=== PATIENT | male | born 1980 | race Caucasian/White ===

== ENCOUNTER 2018-05-14 20:01 | Emergency (ER) | payer OTHER ==
--- NOTE | 2018-05-14 21:39 | ED Physician Documentation ---
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 he is right hand dominant Review of Systems Constitutional: denies: Fever, Chills, Sweats Skin: reports: Bite / sting Musculoskeletal: reports: Extremity pain, Extremity swelling PD PAST MEDICAL HISTORY - Past Medical History Past Medical History: No - Past Surgical History Past Surgical History: Yes General: Cholecystectomy, Appendectomy - Present Medications Home Medications: Ambulatory Orders Medication Instructions Recorded Confirmed Sulfamethox/Trimeth 800/160 1 each PO BID #14 tablet 05/14/18 [Bactrim Ds 800/160] predniSONE [Prednisone] 40 mg PO DAILY #6 tablet 05/14/18 - Allergies Allergies/Adverse Reactions: Allergies Allergy/AdvReac Type Severity Reaction Status Date / Time No Known Drug Allergies Allergy Verified 05/14/18 20:06 - Social History Does the pt smoke?: Yes Smoking Status: Current every day smoker Does the pt drink ETOH?: Yes Does the pt have substance abuse?: No - Immunizations Immunizations are current?: Yes PD ED PE NORMAL - Vitals Vital signs reviewed: Yes - General General: Alert and oriented X 3, No acute distress, Well developed/nourished - Neuro Neuro: No motor deficit, No sensory deficit PD ED PE EXPANDED - Extremities DENISA UE/Hands Visual: 1 - swelling (diffuse, generalized swelling of right hand and all five digits) 2 - rash (mild confluent erythema), swelling, deformity (single puncture wound without visible FB; small amount of serous, translucent discharge without purulence or fluctuance.), tenderness Results - Vitals Vitals: Oxygen O2 Source Room air PD MEDICAL DECISION MAKING - ED course Complexity details: considered differential, d/w patient ED course: 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 tonights exam is most suggestive of large, local reaction, but given the extent of swelling, the small but confluent erythema adjacent to site of sting, and worsening of symptoms two days after the sting, will cover with antibiotic for possible infection - Sepsis Event Vital Signs: Oxygen O2 Source Room air Departure - Departure Disposition: 01 Home, Self Care Clinical Impression: Bee sting reaction Qualifiers: Encounter type: initial encounter Injury intent: accidental or unintentional Qualified Code(s): T63.441A - Toxic effect of venom of bees, accidental ( unintentional), initial encounter Condition: Good Instructions: ED Bite Sting Insect Local Allergic React, ED Sting Bite Insect Infec Follow-Up: Bernadette Peralta MD [Primary Care Provider] - (3-5 days if symptoms not resolving) Prescriptions: predniSONE [Prednisone] 40 mg PO DAILY #6 tablet Sulfamethox/Trimeth 800/160 [Bactrim Ds 800/160] 1 each PO BID #14 tablet Discharge Date/Time: 05/14/18 22:15
[2018-05-14] MEDS: SULFAMETH/TRIMETH DS 800/160 MG TABLET PO STA (22:01)
[2018-05-14] MEDS: predniSONE 20 MG TABLET PO STA (22:02)
[2018-05-14 22:17] VITALS: BP 141/88
== END 2018-05-14 22:15 | disposition home or self-care (01) ==
LOC: ED 20:01
DX: T63.441A Toxic effect of venom of bees, accidental (unintentional), initial encounter (principal); F17.200 Nicotine dependence, unspecified, uncomplicated
CPT/HCPCS: 1040M; 99283; A9270; J7512

== ENCOUNTER 2018-09-12 17:52 | Emergency (ER) | payer OTHER ==
[2018-09-12 17:56] VITALS: BP 177/100
--- NOTE | 2018-09-12 18:25 | ED Physician Documentation ---
PD HPI ANIMAL BITE - Stated complaint Stated Complaint: BK PX - Chief complaint Chief Complaint: Wound - History obtained from History obtained from: Patient - History of Present Illness Location of injury(ies): Back Details of the event: Other Timing - onset: How many days ago (2) Timing - duration: Days (2) Timing - details: Abrupt onset, Still present Pain level max: 7 Pain level now: 7 Improved by: Nothing Worsened by: Other (nothing) Contributing factors: No: Immunocompromised Similar symptoms before: Has not had sx before Recently seen: Not recently seen - Additional information Additional information: 38-year-old male with history of appendectomy, cholecystectomy here with complaint of back pain since getting an insect bite 2 days ago. 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 Patient denies any fever. His noticed that there is was a blister on the first day and then later started draining liquid and the redness is getting larger. PD PAST MEDICAL HISTORY - Past Medical History Past Medical History: No Cardiovascular: None Respiratory: None Neuro: None Endocrine/Autoimmune: None GI: None : None HEENT: None Psych: None Musculoskeletal: None Derm: None - Past Surgical History Past Surgical History: Yes General: Cholecystectomy, Appendectomy - Present Medications Home Medications: Ambulatory Orders Medication Instructions Recorded Confirmed Cephalexin [Keflex] 500 mg PO Q6H #28 capsule 09/12/18 Sulfamethox/Trimeth 800/160 1 each PO BID #14 tablet 09/12/18 [Bactrim Ds 800/160] - Allergies Allergies/Adverse Reactions: Allergies Allergy/AdvReac Type Severity Reaction Status Date / Time No Known Drug Allergies Allergy Verified 09/12/18 17:55 - Social History Does the pt smoke?: Yes Smoking Status: Current every day smoker Does the pt drink ETOH?: Yes Does the pt have substance abuse?: No - Immunizations Immunizations are current?: Yes - POLST Patient has POLST: No PD ED PE NORMAL - Vitals Vital signs reviewed: Yes - General General: Alert and oriented X 3, No acute distress, Well developed/nourished - HEENT HEENT: Moist mucous membranes - Neck Neck: Supple, no meningeal sign - Cardiac Cardiac: RRR, No murmur - Respiratory Respiratory: No respiratory distress, Clear bilaterally - Abdomen Abdomen: Normal bowel sounds, Soft, Non tender, Non distended - Back Back: No CVA TTP, No spinal TTP - Derm Derm: Normal color, Warm and dry, No rash, Other (Right parametrial muscle of the lower lumbar with a insect bite lesion that has a dry open center surrounded with a reddened erythema about 2-1/2 inches in diameter and surrounded by pinkish area. This area is tender to touch. There is no fluctuance. There is no vesicles.) - Extremities Extremities: No deformity, Normal ROM s pain - Neuro Neuro: Alert and oriented X 3, No motor deficit - Psych Psych: Normal mood, Normal affect Results - Vitals Vitals: Vital Signs - 24 hr 09/12/18 17:53 Temperature 36.0 C L Heart Rate 90 Respiratory 18 Rate Blood Pressure 177/100 H O2 Saturation 99 Oxygen O2 Source Room air PD MEDICAL DECISION MAKING - ED course Complexity details: re-evaluated patient (1829 Patient no acute distress. States that his tetanus shot is up-to-date. Will discharge on Bactrim and Keflex.), considered differential (Insect bite that is infected, cellulitis), d/w patient Departure - Departure Disposition: 01 Home, Self Care Clinical Impression: Insect bite Qualifiers: Encounter type: initial encounter Site of insect bite: unspecified site Qualified Code(s): W57.XXXA - Bitten or stung by nonvenomous insect and other nonvenomous arthropods, initial encounter Cellulitis Qualifiers: Site of cellulitis: other site Qualified Code(s): L03.818 - Cellulitis of other sites Condition: Stable Instructions: ED Infec Skin Cellulitis, ED Bite Insect Prescriptions: Cephalexin [Keflex] 500 mg PO Q6H #28 capsule Sulfamethox/Trimeth 800/160 [Bactrim Ds 800/160] 1 each PO BID #14 tablet Comments: Keep the area clean and dry. Take antibiotics as prescribed. OTC Tylenol or Motrin for pain. If the infection is worse return to the emergency room. Otherwise follow-up with your primary doctor in a couple of days for reevaluation.
== END 2018-09-12 18:33 | disposition home or self-care (01) ==
LOC: ED 17:52
DX: S30.860A Insect bite (nonvenomous) of lower back and pelvis, initial encounter (principal); L03.818 Cellulitis of other sites; W57.XXXA Bitten or stung by nonvenomous insect and other nonvenomous arthropods, initial encounter; Y92.821 Forest as the place of occurrence of the external cause; F17.200 Nicotine dependence, unspecified, uncomplicated
CPT/HCPCS: 99283

== ENCOUNTER 2021-03-11 08:00 | Outpatient (CLI) | payer BC, OTHER ==
[2021-03-11 18:56] LABS: BASOPHILS % (AUTO) 0.3 %; HCT - HEMATOCRIT 44.9 % (42.0-52.0); HGB - HEMOGLOBIN 15.7 g/dL (14.0-18.0); LYMPHOCYTES % (AUTO) 11.6 %; MEAN CORPUSCULAR HEMOGLOBIN 29.1 pg (27.0-31.0); MEAN CORPUSCULAR VOLUME 83.3 fL (80.0-94.0); MEAN PLATELET VOLUME 10.1 fL (7.4-11.4); MONOCYTES % (AUTO) 11.1 %; NEUTROPHILS % (AUTO) 75.6 %; PLT - PLATELET COUNT 272 10^3/uL (130-450); RED BLOOD COUNT 5.39 10^6/uL (4.70-6.10); RED CELL DISTRIBUTION WIDTH 12.5 % (12.0-15.0); WHITE BLOOD COUNT 15.7 x10^3/uL (4.8-10.8)
[2021-03-11 19:07] LABS: ABNORMAL LYMPHS % (MANUAL) 0 %; BAND NEUTROPHILS % (MANUAL) 0 %
[2021-03-11 19:39] LABS: ALBUMIN 4.4 g/dL (3.2-5.5); ALBUMIN/GLOBULIN RATIO 1.3 (1.0-2.2); BILIRUBIN,TOTAL 1.3 mg/dL (0.2-1.0); CALCIUM 9.1 mg/dL (8.5-10.3); CREATININE 0.8 mg/dL (0.6-1.2); POTASSIUM 3.4 mmol/L (3.5-5.0); TOTAL PROTEIN 7.7 g/dL (6.7-8.2)
[2021-03-11 20:10] LABS: BILIRUBIN,URINE NEGATIVE (NEGATIVE); GLUCOSE, URINE (UA) NEGATIVE (NEGATIVE); KETONES,URINE (UA) NEGATIVE (NEGATIVE); LEUKOCYTE ESTERASE, URINE NEGATIVE (NEGATIVE); NITRITE,URINE NEGATIVE (NEGATIVE); OCCULT BLOOD,URINE TRACE-INTA (NEGATIVE); PROTEIN,URINE NEGATIVE (NEGATIVE); UROBILINOGEN,URINE 0.2 (NORMAL) E.U./dL (NORMAL)
[2021-03-11 20:41] LABS: CLARITY,URINE CLEAR (CLEAR)
[2021-03-11 21:34] LABS: EOSINOPHILS # (MANUAL) 0.3 10^3/uL (0-0.7); LYMPHOCYTES # (MANUAL) 1.7 10^3/uL (1.5-3.5); LYMPHOCYTES % (MANUAL) 11 %; NEUTROPHILS # (MANUAL) 11.6 10^3/uL (1.5-6.6); PLATELET ESTIMATE, MANUAL NORMAL (130-450,000) (NORMAL); PLATELET MORPHOLOGY NORMAL APPEARANCE (NORMAL); RBC MORPHOLOGY (MULTIPLE) NORMAL APPEARANCE (NORMAL)
[2021-03-11 21:35] LABS: DIFFERENTIAL COMMENT MANUAL DIFFERENTIAL; WBC MORPHOLOGY (MULTIPLE) NORMAL APPEARANCE (NORMAL)
== END 2021-03-11 23:59 | disposition home or self-care (01) ==
LOC: LAB.N 08:00
PROVIDERS: ATTEND Family Medicine
DX: R10.9 Unspecified abdominal pain (principal)
CPT/HCPCS: 36415; 80053; 81001; 81003; 82150; 83690; 85025; 87086

== ENCOUNTER 2021-03-12 09:16 | Emergency (ER) | payer BC, OTHER ==
--- OUTSIDE RECORDS SUMMARY | 2021-03-12 09:18 | EXTERNAL MEDICAL SUMMARY RPT | Continuity of Care Document ---
:1980 Demographics Phone Unavailable Preferred Language Unknown Marital Status Unknown Baptism Affiliation Unknown Race Unknown Ethnic Group Unknown Author Organization [facility] Address [address] [phone] Phone Care Team Providers Name Role Phone MD Unavailable Unavailable Problems date description facility 20210311 Urine C&S All 20210311 Urinalysis with Microscopic Exam, Cultu re in Indicated All 20210311 Unspecified abdominal pain All 20210311 Tobacco use and exposure All 20210311 Tobacco smoking status NHIS All 20210311 Lipase All 20210311 Health-related behavior All 20210311 Flank pain All 20210311 Exercise All 20210311 Details of drug misuse behavior All 20210311 Current every day smoker All 20210311 COMPREHENSIVE METABOLIC PANEL All 20210311 CBC W/Diff/Plt All 20210311 Amylase All 20210311 Alcohol use All 20210311 Abdominal pain, unspecified site All 20210311 Abdominal discomfort All Procedures date description facility 20210311 POC URINALYSIS DIP All Results test status date ordered by attending specimen crystal e Urobilinogen_Presence_ unknown [id number] unknown unknown unknown in_Urine_by_Test_strip Specific_gravity_of_Ur unknown [id number] unknown unknown unknown ine_by_Test_strip pH_of_Urine_by_Test_st unknown [id number] unknown unknown unknown rip Nitrite_Presence_in_Ur unknown [id number] unknown unknown unknown ine_by_Test_strip Leukocyte_esterase_Pre unknown [id number] unknown unknown unknown sence_in_Urine_by_Test_ strip Ketones_Mass_volume_in unknown [id number] unknown unknown unknown _Urine_by_Test_strip Glucose_Mass_volume_in unknown 13222771 unknown unknown unknown _Urine_by_Test_strip Color_of_Urine unknown [id number] unknown unknown unknown Bilirubin.total_Presen unknown [id number] unknown unknown unknown ce_in_Urine_by_Test_str ip Appearance_of_Urine unknown 61018947 unknown unknown unk nown urinalysis_routine unknown [id number] unknown unknown unkn own appearance_urine unknown 15223346 unknown unknown unknow n leukocyte_esterase_uri unknown [id number] unknown unknown unknown ne_by_dipstick urobilinogen_urine_sem unknown 20210311 unknown unknown unknown iquantitative_dipstick_ specific_gravity_urine unknown [id number] unknown unknown unknown pH_urine_semiquantitat unknown 34402871 unknown unknown unknown xavier nitrite_urine_semiquan unknown 11554200 unknown unknown unknown titative ketones_urine_by_test_ unknown 22889734 unknown unknown unknown strip bilirubin_urine unknown 06069714 unknown unknown unknown urine_color unknown [id number] unknown unknown unknown Albumin_Presence_in_Ur unknown 49520598 unknown unknown unknown ine RBC_urine_dipstick unknown 81125894 unknown unknown unkn own Erythrocytes_area_in_U unknown [id number] unknown unknown unknown rine_sediment_by_Micros copy_high_power_field glucose_urine_semiquan unknown 17738624 unknown unknown unknown titative protein_urine_semiquan unknown 67748145 unknown unknown unknown titative_dipstick_ DIPSTICK_URINE_STRIP_L unknown 73201556 unknown unknown unknown OT_NUMBER facility observation status value reference units lab abnor mal line range code notes All Urobilinogen unknown negative unknown _5818 unkno wn unknown _Presence_in_ -0 Urine_by_Test _strip All Specific_gra unknown 1.030 unknown _5811 unknown unknown vity_of_Urine -5 _by_Test_stri p All pH_of_Urine_ unknown 5 unknown _5803 unknown unknown by_Test_strip -2 All Nitrite_Pres unknown negative unknown _5802 unkno wn unknown ence_in_Urine -4 _by_Test_stri p All Leukocyte_es unknown negative unknown _5799 unkno wn unknown terase_Presen -2 ce_in_Urine_b y_Test_strip All Ketones_Mass unknown negative unknown _5797 unkno wn unknown _volume_in_Ur -6 ine_by_Test_s trip All Glucose_Mass unknown negative unknown _5792 unkno wn unknown _volume_in_Ur -7 ine_by_Test_s trip All Color_of_Uri unknown orange unknown _5778 unknown unknown ne -6 All Bilirubin.to unknown negative unknown _5770 unkno wn unknown tal_Presence_ -3 in_Urine_by_T est_strip All Appearance_o unknown clear unknown _5767 unknown unknown f_Urine -9 All urinalysis_r unknown Clean unknown _47 unknown unknown outine Catch All appearance_u unknown clear unknown _328 unknown unknown rine All leukocyte_es unknown negative unknown _327 unkno wn unknown terase_urine_ by_dipstick All urobilinogen unknown negative unknown _326 unkno wn unknown _urine_semiqu antitative_di pstick_ All specific_gra unknown 1.030 unknown _325 unknown unknown vity_urine All pH_urine_sem unknown 5 unknown _324 unknown unknown iquantitative All nitrite_urin unknown negative unknown _323 unkno wn unknown e_semiquantit ative All ketones_urin unknown negative unknown _322 unkno wn unknown e_by_test_str ip All bilirubin_ur unknown negative unknown _319 unkno wn unknown ine All urine_color unknown orange unknown _2751 unknown unknown All Albumin_Pres unknown trace unknown _1753 unknown unknown ence_in_Urine -3 All RBC_urine_di unknown non-hemol unknown _1700 unkn own unknown pstick yzed 005 moderate All Erythrocytes unknown non-hemol unknown _1394 unkn own unknown _area_in_Urin yzed 5-1 e_sediment_by moderate _Microscopy_h igh_power_fie ld All glucose_urin unknown negative unknown _123 unkno wn unknown e_semiquantit ative All protein_urin unknown trace unknown _118 unknown unknown e_semiquantit ative_dipstic k_ All DIPSTICK_URI unknown 6032 unknown _1014 unknown unknown NE_STRIP_LOT_ 00 NUMBER Vital Signs date measurement value source 20210311 weight_standard 239.8 lb 20210311 weight_metric 108.77 kg 20210311 height_standard 70 in 20210311 height_metric 177.8 cm 20210311 BMI 34.53 kg/m2
[2021-03-12 09:44] LABS: BASOPHILS # (AUTO) 0.1 10^3/uL (0.0-0.1); BASOPHILS % (AUTO) 0.7 %; EOSINOPHILS # (AUTO) 0.1 10^3/uL (0.0-0.7); EOSINOPHILS % (AUTO) 1.1 %; HCT - HEMATOCRIT 45.4 % (42.0-52.0); HGB - HEMOGLOBIN 16.3 g/dL (14.0-18.0); LYMPHOCYTES # (AUTO) 1.8 10^3/uL (1.5-3.5); LYMPHOCYTES % (AUTO) 16.4 %; MEAN CORPUSCULAR HEMOGLOBIN 29.8 pg (27.0-31.0); MEAN CORPUSCULAR HGB CONC 35.9 g/dL (32.0-36.0); MEAN PLATELET VOLUME 9.3 fL (7.4-11.4); MONOCYTES # (AUTO) 0.8 10^3/uL (0.0-1.0); MONOCYTES % (AUTO) 7.5 %; NEUTROPHILS # (AUTO) 7.9 10^3/uL (1.5-6.6); NEUTROPHILS % (AUTO) 73.9 %; PLT - PLATELET COUNT 260 10^3/uL (130-450); RED BLOOD COUNT 5.47 10^6/uL (4.70-6.10); RED CELL DISTRIBUTION WIDTH 12.5 % (12.0-15.0); WHITE BLOOD COUNT 10.7 x10^3/uL (4.8-10.8)
[2021-03-12 09:45] LABS: BILIRUBIN,URINE NEGATIVE (NEGATIVE); GLUCOSE, URINE (UA) NEGATIVE (NEGATIVE); KETONES,URINE (UA) NEGATIVE (NEGATIVE); LEUKOCYTE ESTERASE, URINE NEGATIVE (NEGATIVE); NITRITE,URINE NEGATIVE (NEGATIVE); OCCULT BLOOD,URINE NEGATIVE (NEGATIVE); PROTEIN,URINE NEGATIVE (NEGATIVE); UROBILINOGEN,URINE 0.2 (NORMAL) E.U./dL (NORMAL)
[2021-03-12 09:46] LABS: CLARITY,URINE CLEAR (CLEAR)
--- NOTE | 2021-03-12 09:47 | ED Physician Documentation ---
History of Present Illness - Stated complaint Stated Complaint: ABD DISCOMFORT - Chief complaint Chief Complaint: Abd Pain - History obtained from History obtained from: Patient - Additonal information Additional information: 41-year-old man with past surgical history of cholecystectomy, appendectomy, recent medical history of 20 pound weight loss in the past couple of months and recent dietary change to keto diet, presents with epigastric abdominal pain gradual in onset over the past 3 days, constant, 6 out of 10 at worst and currently a 1 out of 10, nonradiating, aching quality, sometimes worse with meals. Patient has never had any stomach issues in the past. Denies fevers, nausea vomiting, diarrhea, back pain chest pain shortness of breath diaphoresis or lightheadedness. Denies urinary symptoms. Review of Systems Ten Systems: 10 systems reviewed and negative Constitutional: denies: Fever, Chills, Myalgias Cardiac: denies: Chest pain / pressure Respiratory: denies: Dyspnea, Cough GI: reports: Abdominal Pain. denies: Nausea, Vomiting, Constipation, Diarrhea : denies: Dysuria PD PAST MEDICAL HISTORY - Past Medical History Cardiovascular: None Respiratory: None Neuro: None Endocrine/Autoimmune: None GI: None : None HEENT: None Psych: None Musculoskeletal: None Derm: None - Past Surgical History Past Surgical History: Yes General: Cholecystectomy, Appendectomy - Present Medications Home Medications: Ambulatory Orders Medication Instructions Recorded Confirmed Sulfamethox/Trimeth 800/160 1 each PO BID #14 tablet 09/12/18 [Bactrim Ds 800/160] cephALEXin [Keflex] 500 mg PO Q6H #28 capsule 09/12/18 - Allergies Allergies/Adverse Reactions: Allergies Allergy/AdvReac Type Severity Reaction Status Date / Time No Known Drug Allergies Allergy Verified 03/12/21 09:23 - Social History Does the pt smoke?: Yes Smoking Status: Current every day smoker Does the pt drink ETOH?: Yes Does the pt have substance abuse?: No - Immunizations Immunizations are current?: Yes - POLST Patient has POLST: No PD ED PE NORMAL - Vitals Vital signs reviewed: Yes - General General: Alert and oriented X 3, No acute distress, Well developed/nourished - HEENT HEENT: Atraumatic, PERRL, EOMI - Neck Neck: Supple, no meningeal sign - Cardiac Cardiac: RRR - Respiratory Respiratory: No respiratory distress, Clear bilaterally - Abdomen Abdomen: Non tender, Non distended, Other (discomfort in epigastrium) - Back Back: No CVA TTP - Derm Derm: Normal color - Extremities Extremities: No deformity - Neuro Neuro: Alert and oriented X 3 - Psych Psych: Normal mood, Normal affect Results - Vitals Vitals: Vital Signs - 24 hr 03/12/21 09:19 Temperature 36.9 C Heart Rate 85 Respiratory 16 Rate Blood Pressure 132/84 H O2 Saturation 99 Oxygen O2 Source Room air - Labs Labs: Laboratory Tests 03/12/21 03/12/21 03/12/21 09:30 09:38 09:38 WBC 10.7 RBC 5.47 Hgb 16.3 Hct 45.4 MCV 83.0 MCH 29.8 MCHC 35.9 RDW 12.5 Plt Count 260 MPV 9.3 Neut # (Auto) 7.9 H Lymph # (Auto) 1.8 [place] # (Auto) 0.8 Eos # (Auto) 0.1 Baso # (Auto) 0.1 Absolute Nucleated RBC 0.00 Nucleated RBC % 0.0 Sodium 138 Potassium 3.6 Chloride 101 Carbon Dioxide 28 Anion Gap 9.0 BUN 13 Creatinine 0.8 Estimated GFR (MDRD) 107 Glucose 107 H Calcium 9.0 Total Bilirubin 1.5 H AST 19 ALT 33 Alkaline Phosphatase 76 Total Protein 8.1 Albumin 4.4 Globulin 3.7 Albumin/Globulin Ratio 1.2 Lipase 26 Urine Color YELLOW Urine Clarity CLEAR Urine pH 6.0 Ur Specific Yoder 1.020 Urine Protein NEGATIVE Urine Glucose (UA) NEGATIVE Urine Ketones NEGATIVE Urine Occult Blood NEGATIVE Urine Nitrite NEGATIVE Urine Bilirubin NEGATIVE Urine Urobilinogen 0.2 (NORMAL) Ur Leukocyte Esterase NEGATIVE Ur Microscopic Review NOT INDICATED Urine Culture Comments NOT INDICATED PD MEDICAL DECISION MAKING - ED course ED course: 41-year-old man presented from urgent care yesterday with elevated white blood cell count. We will repeat his blood work here and will obtain an ultrasound of the right upper quadrant given his report that this feels similar to prior gallbladder attacks. He has had his gallbladder out however we will evaluate LFTs and ultrasound for infection of the gallbladder stump. Departure - Departure Disposition: 01 Home, Self Care Clinical Impression: Abdominal pain Condition: Good Instructions: ED Abdominal Pain Unkn Cause Follow-Up: Rommel Gonzalez MD [Physician No Access] - Comments: You were seen in the emergency department for abdominal pain and for elevated white blood cell count. Your white blood cell count is normal today. Your ultrasound of your gallbladder stump does not show any signs of disease. You should follow-up with your primary doctor for referral to gastroenterology. I provided a gastroenterology referral as well. Any that you are experiencing stomach upset related to diet or other causes. Please return to the emergency department if you have any new or worsening symptoms or other concerns.
[2021-03-12 10:03] LABS: ALBUMIN 4.4 g/dL (3.2-5.5); ALBUMIN/GLOBULIN RATIO 1.2 (1.0-2.2); BILIRUBIN,TOTAL 1.5 mg/dL (0.2-1.0); CREATININE 0.8 mg/dL (0.6-1.2); POTASSIUM 3.6 mmol/L (3.5-5.0); TOTAL PROTEIN 8.1 g/dL (6.7-8.2)
--- NOTE | 2021-03-12 10:18 | XRAY Report ---
PROCEDURE: Chest 1 View X-Ray INDICATIONS: epigastric pain TECHNIQUE: One view of the chest was acquired. COMPARISON: None. FINDINGS: Surgical changes and devices: None. Lungs and pleura: No pleural effusions or pneumothorax. There are linear opacities peripherally in l eft lung base consistent with scarring or atelectasis. No acute consolidation. Mediastinum: Mediastinal contours appear normal. Heart size is normal. Bones and chest wall: No suspicious bony lesions. Overlying soft tissues appear unremarkable. IMPRESSION: 1. No acute cardiopulmonary disease. Reviewed by: Henok Laguerre MD on 03/12/2021 10:16 AM PDT Approved by: Henok Laguerre MD on 03/12/2021 10:16 AM PDT Station ID: [id number]
--- OUTSIDE RECORDS SUMMARY | 2021-03-12 10:47 | EXTERNAL MEDICAL SUMMARY RPT | Continuity of Care Document ---
:1980 Demographics Phone Unavailable Preferred Language Unknown Marital Status Unknown Moravian Affiliation Unknown Race Unknown Ethnic Group Unknown Author Organization [facility] Address [address] [phone] Phone Care Team Providers Name Role Phone [...] by attending specimen crystal e Urobilinogen_Presence_ unknown [id number] unknown unknown unknown in_Urine_by_Test_strip Specific_gravity_of_Ur unknown [id number] unknown unknown unknown ine_by_Test_strip pH_of_Urine_by_Test_st unknown [id number] unknown unknown unknown rip Nitrite_Presence_in_Ur unknown [id number] unknown unknown unknown ine_by_Test_strip Leukocyte_esterase_Pre unknown 00003662 unknown unknown unknown sence_in_Urine_by_Test_ strip Ketones_Mass_volume_in unknown 39232941 unknown unknown unknown _Urine_by_Test_strip Glucose_Mass_volume_in unknown 27405651 unknown unknown unknown _Urine_by_Test_strip Color_of_Urine unknown [id number] unknown unknown unknown Bilirubin.total_Presen unknown 71853149 unknown unknown unknown ce_in_Urine_by_Test_str ip Appearance_of_Urine unknown [id number] unknown unknown unk nown urinalysis_routine unknown [id number] unknown unknown unkn own appearance_urine unknown 55199555 unknown unknown unknow n leukocyte_esterase_uri unknown 48503722 unknown unknown unknown ne_by_dipstick urobilinogen_urine_sem unknown 20210311 unknown unknown unknown iquantitative_dipstick_ specific_gravity_urine unknown 46731519 unknown unknown unknown pH_urine_semiquantitat unknown [id number] unknown unknown unknown xavier nitrite_urine_semiquan unknown [id number] unknown unknown unknown titative ketones_urine_by_test_ unknown 03836138 unknown unknown unknown strip bilirubin_urine unknown 97237151 unknown unknown unknown urine_color unknown 75060247 unknown unknown unknown Albumin_Presence_in_Ur unknown 70106379 unknown unknown unknown ine RBC_urine_dipstick unknown 68327939 unknown unknown unkn own Erythrocytes_area_in_U unknown 97773968 unknown unknown unknown rine_sediment_by_Micros copy_high_power_field glucose_urine_semiquan unknown 12339836 unknown unknown unknown titative protein_urine_semiquan unknown [id number] unknown unknown unknown titative_dipstick_ DIPSTICK_URINE_STRIP_L unknown [id number] unknown unknown unknown OT_NUMBER facility observation status [...]
[2021-03-12 12:00] VITALS: BP 104/71
--- NOTE | 2021-03-12 12:33 | Ultrasound Report ---
PROCEDURE: Abdomen Limited INDICATIONS: RUQ u/s - epigastric abd pain, worse with food TECHNIQUE: Real-time focused scanning was performed of the abdomen, with image documentation. COMPARISON: None. FINDINGS: The liver is increased in echogenicity compatible with fatty infiltration. The gallbladder is surgically absent. No intra or extra hepatic biliary ductal dilatation. Common bile duct measures up to 0.5 cm. The visualized pancreas appears unremarkable sonographically. Right kidney measures up to 13.6 cm. No hydronephrosis. IMPRESSION: 1. Increased hepatic echogenicity compatible with steatosis. 2. Surgical absence of the gallbladder. No evidence of biliary ductal dilatation. Reviewed by: Henok Laguerre MD on 03/12/2021 12:31 PM PDT Approved by: Henok Laguerre MD on 03/12/2021 12:31 PM PDT Station ID: [id number]
== END 2021-03-12 12:09 | disposition home or self-care (01) ==
LOC: ED 09:16
DX: R10.13 Epigastric pain (principal); Z90.49 Acquired absence of other specified parts of digestive tract; F17.200 Nicotine dependence, unspecified, uncomplicated
CPT/HCPCS: 36415; 80053; 81001; 81003; 83690; 85025; 87086; 99284